=== PATIENT | male | born 1965 | race Caucasian/White ===

== ENCOUNTER → 2018-05-04 | Day surgery (SDC) | payer OTHER ==
[~2018-05-04] MED LIST: FENTANYL CITRATE/PF 100MCG/2 ML INJ ONE; LIDOCAINE HCL 2% LOCAL INJ 5 ML SDV VIAL INJ ONE; MIDAZOLAM HCL 2 MG/2 ML VIAL ONE; PROPOFOL IV EMULSION 10 MG/ML 50 ML VIAL ONE; SIMVASTATIN20 MG PO; XANAX0.25 MG PO
[2018-05-04 17:35] VITALS: BP 115/79
--- NOTE | 2018-05-04 17:53 | Operative Report ---
DATE OF PROCEDURE: May 04, 2018 REFERRING PHYSICIAN: Dr. Hortensia Amin PROCEDURE PERFORMED: Colonoscopy and polypectomy. INDICATIONS FOR COLONOSCOPY: Colorectal cancer screening, father with colon cancer. MEDICATION: Patient was done under MAC. Please see anesthesiologist's note. PROCEDURE: With patient in left lateral decubitus position, flexible fiberoptic Olympus colonoscope was inserted into the rectum with ease and advanced all the way to the cecum. One polyp was hot biopsied from the cecum. The ascending and the transverse appeared to be within normal limits. Two polyps were snared. One polyp was hot biopsied from the descending colon, 2 polyps were hot biopsied from the sigmoid, and 1 polyp was hot biopsied from the rectum. The scope was then retroflexed into the distal rectum and small internal hemorrhoids were noted, none of which was actively bleeding. The scope was then straightened out. It was subsequently withdrawn. Patient tolerated the procedure well. IMPRESSIONS 1. Cecal polyp, hot biopsied. 2. Descending colon polyps x3, two snared and 1 hot biopsied. 3. Sigmoid colon polyps x2, hot biopsied. 4. Rectal polyp x1, hot biopsied. 5. Internal hemorrhoids, none actively bleeding. PLAN: Follow up histology. Initiate high-fiber, low-fat diet. Initiate high-fiber supplement. Patient will need a followup colonoscopy in 2 to 3 years. Job#: [id number] CQ cc:HORTENSIA AMIN MD
== END | disposition home or self-care (01) ==
LOC: OR 13:00
PROVIDERS: ATTEND Internal Medicine Gastroenterology
DX: Z12.11 Encounter for screening for malignant neoplasm of colon (principal); D12.0 Benign neoplasm of cecum; D12.4 Benign neoplasm of descending colon; K62.1 Rectal polyp; K64.8 Other hemorrhoids; E78.5 Hyperlipidemia, unspecified; E66.3 Overweight; F41.9 Anxiety disorder, unspecified; Z01.810 Encounter for preprocedural cardiovascular examination; Z68.29 Body mass index [BMI] 29.0-29.9, adult; Z80.0 Family history of malignant neoplasm of digestive organs
CPT/HCPCS: 45384; 45385; 93005; J2001; J2250